=== PATIENT | male | born 1995 | race Caucasian/White ===

== ENCOUNTER 2017-10-22 15:37 | Emergency (ER) | payer OTHER ==
--- NOTE | 2017-10-22 18:45 | ED Physician Documentation ---
PD HPI UPPER EXT INJURY - Stated complaint Stated Complaint: LAC/ L FINGER - Chief complaint Chief Complaint: Laceration - History obtained from History obtained from: Patient - History of Present Illness Location: Left, Finger (index finger tip) Where injury occurred: Work Timing - onset: Today Timing - details: Abrupt onset, Still present Worsened by: Palpating Associated symptoms: No: Weakness, Numbness Review of Systems Neurologic: denies: Focal weakness, Numbness PD PAST MEDICAL HISTORY - Past Medical History Past Medical History: No - Past Surgical History Past Surgical History: No - Present Medications Home Medications: Ambulatory Orders Medication Instructions Recorded Confirmed No Known Home Medications [No 10/29/14 10/29/14 Known Home Medications] - Allergies Allergies/Adverse Reactions: Allergies Allergy/AdvReac Type Severity Reaction Status Date / Time No Known Drug Allergies Allergy Verified 10/29/14 12:26 - Social History Does the pt smoke?: No Smoking Status: Never smoker Does the pt drink ETOH?: No Does the pt have substance abuse?: No - Immunizations Immunizations are current?: Yes Immunizations: TDAP current <10years - POLST Patient has POLST: No PD ED PE NORMAL - Vitals Vital signs reviewed: Yes - General General: Alert and oriented X 3, Well developed/nourished - Derm Derm: Normal color, Warm and dry - Extremities Extremities: Other (left index finger tip with laceration not in nailbed. It is small 1 cm flap that has crisp edges. It can be closed with steristrips and glue. ) - Neuro Neuro: No motor deficit, No sensory deficit Results - Vitals Vitals: Vital Signs - 24 hr 10/22/17 10/22/17 16:00 18:52 Temperature 36.4 C L 36.6 C Heart Rate 101 H 67 Respiratory 18 18 Rate Blood Pressure 125/76 115/63 O2 Saturation 99 97 Oxygen O2 Source Room air PD MEDICAL DECISION MAKING - Sepsis Event Vital Signs: Vital Signs - 24 hr 10/22/17 10/22/17 16:00 18:52 Temperature 36.4 C L 36.6 C Heart Rate 101 H 67 Respiratory 18 18 Rate Blood Pressure 125/76 115/63 O2 Saturation 99 97 Oxygen O2 Source Room air Departure - Departure Disposition: 01 Home, Self Care Clinical Impression: Finger laceration Qualifiers: Encounter type: initial encounter Finger: index finger Damage to nail status: without damage Foreign body presence: without foreign body Laterality: left Qualified Code(s): S61.211A - Laceration without foreign body of left index finger without damage to nail, initial encounter Condition: Stable Record reviewed to determine appropriate education?: Yes Instructions: ED Laceration Hand Comments: Keep the finger clean and dry over the next few days. Allow the Steri-Strips and glue to fall off on their own after several days. This should seal it up enough to be able to treat which is Band-Aids from there. Recheck if signs of infection. Tylenol or ibuprofen if needed for pains. Discharge Date/Time: 10/22/17 18:52
[2017-10-22 18:54] VITALS: BP 115/63
== END 2017-10-22 18:52 | disposition home or self-care (01) ==
LOC: ED 15:37
DX: S61.211A Laceration without foreign body of left index finger without damage to nail, initial encounter (principal); W25.XXXA Contact with sharp glass, initial encounter; Y93.G1 Activity, food preparation and clean up; Y99.0 Civilian activity done for income or pay
CPT/HCPCS: 1040M; 99282; 99283